=== PATIENT | male | born 1970 | race Caucasian/White ===

== ENCOUNTER → 2021-05-28 11:09 | Outpatient (BNVA) | payer OTHER, SELFPAY | PROVIDERS: Visit Provider Registered Nurse Neonatal Intensive Care | DX: S59.912A Unspecified injury of left forearm, initial encounter (principal); X58.XXXA Exposure to other specified factors, initial encounter; Z68.37 Body mass index [BMI] 37.0-37.9, adult; F17.220 Nicotine dependence, chewing tobacco, uncomplicated; Z71.89 Other specified counseling | CPT/HCPCS: 73080 ==

== ENCOUNTER 2021-06-10 13:38 | Outpatient (CLI) | payer OTHER, SELFPAY ==
--- NOTE | 2021-06-10 13:45 | XR_ITS ---
WS: [id number] ELBOW LEFT TECHNIQUE: 3 views of the left elbow CLINICAL INFORMATION: trauma to left elbow COMPARISON: None. FINDINGS: No significant joint effusion. Distal humerus is normal in appearance. Normal radial head. Normal ole cranon. No evidence of acute fracture dislocation. Soft tissue edema dorsal elbow. XR/XR elbow LT min 3V* [id number] IMPRESSION: Mild soft tissue edema overlying the dorsal elbow. No visualized fractures.
== END 2021-06-10 13:39 | disposition home or self-care (01) ==
PROVIDERS: Visit Provider Family Medicine
DX: S50.02XA Contusion of left elbow, initial encounter (principal); X58.XXXA Exposure to other specified factors, initial encounter; R60.0 Localized edema
CPT/HCPCS: 73080

== ENCOUNTER → 2021-09-28 12:17 | Outpatient (BNVA) | payer OTHER, SELFPAY | PROVIDERS: PCP Nurse Practitioner Family; Visit Provider Nurse Practitioner Family | DX: Z20.822 Contact with and (suspected) exposure to COVID-19 (principal); J06.9 Acute upper respiratory infection, unspecified; I10 Essential (primary) hypertension; Z20.828 Contact with and (suspected) exposure to other viral communicable diseases | CPT/HCPCS: 87635 ==

== ENCOUNTER 2021-12-17 06:07 | Day surgery (SDC) | payer OTHER, SELFPAY ==
[2021-12-16 14:27] VITALS: BMI 40.0
[2021-12-17] VITALS (16 sets, daily range): BP systolic 109–148; BP diastolic 70–103; PULSE 62–87; RESP 18–30; TEMP 36.6; O2SAT 91–99
[2021-12-17] MEDS: sodium chloride 0.9% 1,000 ML 30 ML IV (06:38)
--- NOTE | 2021-12-17 06:57 | ANES.PREANE2 ---
Pre-Anesthetic Assessment Height/Weight: Height 1.68 m Weight 112.491 kg Temp Pulse Resp BP Pulse Ox 97.9 F 62 18 121/78 95 12/17/21 06:17 12/17/21 06:17 12/17/21 06:17 12/17/21 06:17 12/17/21 06:17 Preop Diagnosis: cholelithiasis Operation Date: 12/17/21 07:30 Proposed Procedures p Laparoscopic Cholecystectomy/87396/K82.9 gallbladder problem(Not Applicable) - Lake White MD Familial anesthetic complications: none Was Beta Maria Del Carmen taken within 24 hours: Yes Was Clonidine taken within 24 hours: N/A Last intake: Intake Last Liquid Date 12/16/21 Last Liquid Time 18:30 Last Solid Date 12/16/21 Last Solid Time 18:30 Social No alcohol and No tobacco Exam alert, oriented x 3, clear to auscultation bilaterally and regular rate & rhythm Airway Submandibular: within normal limits Cervical ROM: within normal limits Mallampati: Class II Dentition: false Pulmonary STOP BANG Score of 8 no dx of apnea CV/HEM Hypertension None reported Hepatic None reported GI cholelithiasis Metabolic Morbid Obesity Neuropsych Depression and Neuropathy (ulnar nerve neuropathy ) Anesthetic Plan ASA status: 3 (51 year old morbidly obese male with high risk for ARTHUR on stop bang assesment, depression, htn, ) Anesthesia: Anesthesia Evaluation and General Other: We discussed risk and benefits of general anesthesia including PONV, sore throat (sometimes severe), corneal abrasion, positioning and peripheral nerve injuries, life threatening allergic reaction, post operative ICU admission requiring prolonged intubation, stroke, heart attack, , and rare incidences of recall. Patient consents to proceed with general anesthesia. Medications/Allergies Home Medications Medication Instructions Recorded Confirmed Last Taken Type buspirone 10 mg tablet 20 mg PO TID 05/28/21 12/17/21 12/16/21 History sumatriptan succinate 50 mg tablet See Rx Instructions PO .COMPLEX 05/28/21 12/17/21 12/16/21 History (Imitrex) atenolol 25 mg tablet 50 mg PO DAILY 12/11/21 12/17/21 12/17/21 History fluticasone propionate 50 1 spray INTRANASAL DAILY 12/11/21 12/17/21 12/16/21 History mcg/actuation nasal spray,suspension (Flonase Allergy Relief) sertraline 50 mg tablet (Zoloft) 150 mg PO DAILY tab 12/11/21 12/17/21 12/16/21 History topiramate 100 mg tablet 100 mg PO BID 12/11/21 12/17/21 12/16/21 History docusate sodium 100 mg capsule 100 mg PO BID #30 cap 12/17/21 Unknown Rx (Colace) hydrocodone 5 mg-acetaminophen 325 1 tab PO Q6H PRN #20 tab 12/17/21 Unknown Rx mg tablet ondansetron HCl 4 mg tablet 4 mg PO Q8H 5 Days #15 tab 12/17/21 Unknown Rx Allergies Allergy/AdvReac Type Severity Reaction Status Date / Time No Known Allergies Allergy Verified 12/16/21 14:23 Current Medications Generic Name Dose Route Start Last Admin Trade Name Freq PRN Reason Stop Dose Admin Sodium Chloride 1,000 mls @ 30 mls/hr 12/17/21 06:15 12/17/21 06:38 Sodium Chloride 0.9% IV 12/18/21 06:14 30 mls/hr .Q24H SAMUEL Administration PFSH Anesthesia Medical History Anxiety Depression History of COVID-19 Migraine Sinusitis Surgical History (Updated 12/17/21 @ 09:02 by Lake White MD) History of appendectomy History of colonoscopy 10 yrs Status post laparoscopic cholecystectomy (12/17/21) Family History Other Cancer Social History Smoking and tobacco status: former smoker Data Anesthesia Cardiac Studies: No Data to Display
--- NOTE | 2021-12-17 07:31 | P.HP_ITS ---
Same Day Surgery H&P Indication for Procedure/HPI DATE OF PROCEDURE: December 17, 2021 CHIEF COMPLAINT/INDICATIONFOR SURGICAL PROCEDURE: lap mauricio PREOP DIAGNOSIS: cholelithiasis PLANNED PROCEDURE: Operation Date: 12/17/21 07:30 Proposed Procedures p Laparoscopic Cholecystectomy/81154/K82.9 gallbladder problem(Not Applicable) - Lake White MD Medications/Allergies* Home Medications Medication Instructions Recorded Confirmed Type buspirone 10 mg tablet 20 mg PO TID 05/28/21 12/17/21 History sumatriptan succinate 50 mg tablet See Rx Instructions PO .COMPLEX 05/28/21 12/17/21 History (Imitrex) atenolol 25 mg tablet 50 mg PO DAILY 12/11/21 12/17/21 History fluticasone propionate 50 1 spray INTRANASAL DAILY 12/11/21 12/17/21 History mcg/actuation nasal spray,suspension (Flonase Allergy Relief) sertraline 50 mg tablet (Zoloft) 150 mg PO DAILY tab 12/11/21 12/17/21 History topiramate 100 mg tablet 100 mg PO BID 12/11/21 12/17/21 History Allergies/Adverse Reactions Allergy/AdvReac Type Severity Reaction Status Date / Time No Known Allergies Allergy Verified 12/16/21 14:23 Current Medications: Generic Name Dose Route Start Last Admin Trade Name Freq PRN Reason Stop Dose Admin Sodium Chloride 1,000 mls @ 30 mls/hr 12/17/21 06:15 12/17/21 06:38 Sodium Chloride 0.9% IV 12/18/21 06:14 30 mls/hr .Q24H SAMUEL Administration Pertinent History/Comorbid Conditions* Medical History (Updated 12/11/21 @ 10:15 by Lake White MD) Anxiety Depression History of COVID-19 Migraine Sinusitis Surgical History (Updated 12/11/21 @ 10:15 by Lake White MD) History of appendectomy History of colonoscopy 10 yrs Family History (Updated 12/11/21 @ 10:05 by Chula Carranza MA) Cancer Social History Smoking and tobacco status: former smoker Pertinent Exam Findings alert, oriented x 3 and regular rate & rhythm Recommendations Surgery/Procedure today Coding Level of Care Code 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
--- NOTE | 2021-12-17 09:03 | PM.OP ---
Operative Report Date of procedure: December 17, 2021 Pre-op diagnosis: Cholelithiasis Post-op diagnosis: same Procedure done: Laparoscopic cholecystectomy Specimens removed/disposition: Gallbladder Surgeon: Lake White Anesthesia: General Condition: stable Disposition: PACU Procedure: The patient was taken to the operating room and was intubated under general anesthesia. After the antibiotic had been administered, the abdomen was prepped and draped in a sterile manner. Using a #15 blade, a 1 centimeter infraumbilical curvilinear incision was made and using an open Micheal technique the peritoneal cavity was entered. A 10 millimeter port was placed and 15 millimeters of pneumoperitoneum was created. A 10 millimeter, 30 degrees scope was then introduced. Three 5 millimeter ports were placed in the epigastric, midclavicular and the anterior axillary line two fingerbreadths below the costal margin on the right side under the direct visualization. Ratcheted forceps were introduced into the lateral most port and was used to retract the fundus of the gallbladder cephalad and using forceps the infundibulum of the gallbladder was retracted laterally. Using L-hook cautery the peritoneum overlying the Calot's triangle was opened medially and laterally until the cystic duct and the cystic artery were skeletonized. There was a tear in the body of the gallbladder where the lateral retraction was applied resulting in drainage of bile which was irrigated and suctioned out. Dissection was carried along the body of the gallbladder and after ensuring critical view of safety, 4 clips applied on the cystic duct and 3 clips applied on the cystic artery and cut leaving, 3 clips on the remaining portion of the duct and 2 clips on the remaining portion of the artery. The rest of the gallbladder was dissected off the liver using L-hook cautery. There was no bleeding or bile leaking noted from the gallbladder fossa and the clips appeared to be in place. An EndoCatch bag was introduced to remove the gallbladder. All the ports were removed under direct visualization and there was no bleeding noted from the port sites. The fascia of the umbilicus was closed using [id number] 0 Vicryl sutures and the subcutaneous tissue was approximated using 3-0 Vicryl sutures. The skin at all four ports were closed using 4-0 Monocryl and Dermabond. A total of 10 millimeters of 0.5% Marcaine was infiltrated around the port sites. The patient was stable throughout the procedure.
[2021-12-17] MEDS: HYDROmorphone 1 mg/mL INJ 1 mL 0.5 MG IVP ×2 (09:13→09:29)
[2021-12-17] MEDS: ipratropium-albuterol 3 mL Neb INHALATION (09:25)
[2021-12-17] MEDS: HYDROcodone-acetaminophen 5-325 mg Tablet 1 TAB PO (10:37)
--- NOTE | 2021-12-17 13:45 | ANE.PACU2 ---
Inpatient post-anesthesia follow up: Airway intact: Yes Vital signs: Temperature 97.8 F Pulse Rate 74 Respiratory Rate 20 Blood Pressure 111/70 Pulse Oximetry 94 Oxygen Delivery Me thod Room Air Oxygen Flow Rate 2 Fraction of Inspir ed Oxygen Hydration adequate: Yes Nausea and vomiting: No Pain level: 5 Mental status: Baseline
== END 2021-12-17 10:40 | disposition home or self-care (01) ==
PROVIDERS: PCP Nurse Practitioner Family; Visit Provider Surgery
PROC: 0FT44ZZ Resection of Gallbladder, Percutaneous Endoscopic Approach (ICD-10-PCS; CPT 47562; principal; 2021-12-17 07:30)
DX: K80.10 Calculus of gallbladder with chronic cholecystitis without obstruction (principal); I10 Essential (primary) hypertension; E66.01 Morbid (severe) obesity due to excess calories; Z68.41 Body mass index [BMI] 40.0-44.9, adult; F32.9 Major depressive disorder, single episode, unspecified; G62.9 Polyneuropathy, unspecified; F41.9 Anxiety disorder, unspecified; Z86.16 Personal history of COVID-19; Z87.891 Personal history of nicotine dependence
CPT/HCPCS: 47562; 88304; J0690; J1100; J1170; J2250; J2370; J2405; J2704; J2710; J3010; J3490; J7030

== ENCOUNTER 2021-12-24 14:45 | Outpatient (CLI) | payer OTHER, SELFPAY ==
--- NOTE | 2021-12-24 15:10 | XR_ITS ---
WS: [id number] Abdomen series, Flat and upright 12/24/2021 Clinical Data: Z90.49 - Acquired absence of other specified parts of dig... Comparison: None. Findings: No free air is seen beneath the diaphragms. No abnormal intra-abdominal masses or calcifica tions are seen. There are clips in the right upper quadrant from a cholecystectomy. There is a modera te amount of fecal material throughout the colon. The bladder is partly full. XR/XR abdomen min 2V [id number] Impression: Negative flat and upright films of the abdomen.
[2021-12-24 15:13] LABS: Basophils # 0.1 10^3/uL (0.0-0.1); Basophils % 0.7 %; Eosinophils # 0.2 10^3/uL (0.0-0.8); Eosinophils % 1.4 %; Hematocrit 48.8 % (42.0-52.0); Lymphocytes # 1.5 10^3/uL (0.8-4.8); Lymphocytes % 13.7 %; Mean Corpuscular HGB Conc 32.8 g/dL (30.0-36.0); Mean Corpuscular Volume 88.4 fl (80-94); Mean Platelet Volume 9.5 fL (7.4-10.4); Monocytes # 1.3 10^3/uL (0.2-0.9); Monocytes % 11.8 %; Neutrophils # 7.54 10^3/uL (1.8-7.7); Neutrophils % 71.1 %; Nucleated Red Blood Cells % 0 %; Platelet Count 229 10^3/cmm (130-400); Red Blood Count 5.52 10^6/uL (4.1-5.3); Red Cell Distribution Width 13.2 % (12.1-15.1); White Blood Count 10.6 10^3/uL (4.0-10.0)
[2021-12-24 15:49] LABS: Alanine Aminotransferase 67 U/L (0-41); Albumin Level 4.1 g/dL (3.5-5.2); Alkaline Phosphatase 90 IU/L (40-130); Anion Gap 13.7 (5-19); Aspartate Amino Transferase 27 U/L (0-40); Blood Urea Nitrogen 15 mg/dL (6-20); Calcium 9.7 mg/dL (8.5-10.5); Carbon Dioxide 25 mmol/L (22-29); Chloride 104 mmol/L (98-107); Glomerular Filtration Rate 102.3 mL/min (90-130); Glucose 122 mg/dL (65-115); Lipase 23 U/L (13-60); Osmolality Calculated 288 mOsm/kg (285-295); Potassium 4.7 mmol/L (3.5-5.1); Sodium 138 mmol/L (136-145); Total Bilirubin 0.6 mg/dL (0.15-1.2); Total Protein 8.1 g/dL (6.6-8.7)
== END 2021-12-24 14:46 | disposition home or self-care (01) ==
LOC: LAB 14:48
PROVIDERS: PCP Nurse Practitioner Family; Visit Provider Surgery
DX: Z90.49 Acquired absence of other specified parts of digestive tract (principal)
CPT/HCPCS: 74019; 80053; 83690; 85025

== ENCOUNTER 2021-12-24 18:43 | Emergency (ER) | payer OTHER, SELFPAY ==
--- NOTE | 2021-12-24 18:50 | XR_ITS ---
WS: [id number] Portable AP upright chest, 12/24/2021 Clinical Data: chest pain Comparison: None. Findings: No nodules, masses or effusions are seen. The heart is slightly enlarged. The pulmonary vas cularity is not increased. No pneumothorax is seen. There is bilateral minimal patchy opacity at both costophrenic angles. These opacities could represent minimal basilar pneumonia. XR/XR chest 1V portable [id number] Impression: 1. Minimal bibasilar opacities which could represent minimal pneumonia and/or a telectasis. 2. Cardiomegaly.
[2021-12-24 19:02] VITALS: BP 114/73; PULSE 102; RESP 16; TEMP 37.3; O2SAT 95; BMI 40.3
--- NOTE | 2021-12-24 19:12 | W.ED.BACK ---
Documented by User: JACKSON Cisneros 12/24/21 21:48 HPI - Back Pain/Injury General: Chief Complaint: Back Pain/Injury Stated Complaint: SOB\PainBack to RT Shoulder Blade\Recent Surgery Time Seen by Provider: 12/24/21 19:12 History of Present Illness: 51-year-old male patient comes in today with complaints of shortness of breath and right back pain. Patient had surgery 1 week ago for his gallbladder removal. Patient was seen today by surgeon's office and had lab work done. Lab work was unremarkable. Patient states that the pain causes him not to be able to catch his breath. Patient appears in moderate pain. Patient denies any nausea or vomiting. Patient reports no fever. Patient reports he was recovering well until last night when he started having pain. Associated symptoms: Deny fever(s) Review of Systems General: Reports: 10 or more systems reviewed and unremarkable except in HPI and below Const: Denies: fever(s) Card: Reports: chest pain Resp: Reports: dyspnea Musc: Reports: back pain Skin/Breast: Denies: rash PFSH ED PFSH: Medical History Anxiety Depression History of COVID-19 Migraine Sinusitis Surgical History History of appendectomy History of colonoscopy 10 yrs Status post laparoscopic cholecystectomy (12/17/21) Family History Other Cancer Social History Smoking and tobacco status: former smoker Physical Exam Const: COMMON NORMALS: alert HENMT: COMMON NORMALS: normocephalic and atraumatic HEAD & SCALP: normocephalic and atraumatic MOUTH: Normal oral and palatal mucosa present THROAT: posterior oropharynx normal Neck/C-Spine: COMMON NORMALS: full ROM Resp: COMMON NORMALS: normal respiratory effort and clear to auscultation bilaterally AUSCULTATION: clear to auscultation bilaterally Cardio: COMMON NORMALS: regular rate and regular rhythm RATE: regular rate RHYTHM: regular rhythm GI: INSPECTION: Yes abdominal distension and Yes other (Healing surgical wound) Back/Pelvis: THORACIC SPINE/UPPER BACK: Yes pain with ROM and Yes paraspinal muscle tenderness Extremity: COMMON NORMALS: no pedal edema Neuro: SENSORIUM/ORIENTATION: Yes alert Skin: COMMON NORMALS: turgor normal GENERAL SKIN EXAM: turgor normal Course ED course: 2019, was notified by Josee shah for patient's abnormal CTA. And notes that he has a pulmonary embolism with pulmonary infarct in the right lung. There is no significant blood in the right ventricle suggesting right heart strain. I discussed with Dr. Huber who then talked with Dr. metzger who recommended patient be transferred to higher level of care. Vital Signs: Vital signs: Vital Signs Temperature 99.2 F 12/24/21 19:02 Pulse Rate 104 H 12/24/21 22:00 Respiratory Rate 20 H 12/24/21 22:00 Blood Pressure 121/86 12/24/21 22:00 Pulse Oximetry 95 12/24/21 22:00 MDM - Back Pain/Injury Medical Decision Making 51-year-old male patient comes in with right chest wall pain starting last night patient reports pain is gotten worse throughout the day. Patient had been seen at the surgeon's office and was ordered some hydrocodone. Patient had taken 1 tablet of hydrocodone prior to coming to the ER with minimal improvement of pain. On exam patient had pain and discomfort to the right posterior chest wall. No tenderness was elicited with palpation. Lungs are decreased in the bases. Vital signs noted some mild elevation of blood pressure. Oxygen saturation was normal. Patient appeared in moderate distress. Differential diagnosis includes PE, pneumonia, complication of gallbladder surgery. CBC and CMP were unremarkable. CTA of the chest noted PE with right heart strain. Dr. Huber was consulted who then consulted interventional cardiology who recommended patient be transferred to a higher level of care. Patient was notified heparin was started and patient was transferred. Labs : 12/24/21 19:25 12/24/21 19:25 Radiology Impressions Chest/Abdomen/Pelvis CT 12/24/21 19:21 IMPRESSION: 1. Acute pulmonary emboli with findings suggesting right heart strain. 2. Findings worrisome for developing pulmonary infarct at the right lung base. IMPRESSION: 1. No acute findings in the abdomen or pelvis. 2. Mild fatty liver 3. 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 Laboratory Results WBC 10.8 10^3/uL (4.0-10.0) H 12/24/21 19:25 RBC 5.71 10^6/uL (4.1-5.3) H 12/24/21 19: Hgb 16.6 g/dL (11.7-16.6) 12/24/21: Hct 50.2 % (42.0-52.0) 12/24/21: MCV 87.9 fl (80-94) 12/24/21: MCH 29.1 pg (28.0-34.0) 12/24/21: MCHC 33.1 g/dL (30.0-36.0) 12/24/21: RDW 13.2 % (12.1-15.1) 12/24/21: Plt Count 229 10^3/cmm (130-400) 12/24/21: MPV 9.9 fL (7.4-10.4) 12/24/21: Neut % (Auto) 76.8 % 12/24/21: Lymph % (Auto) 12.2 % 12/24/21: [place] % (Auto) 9.0 % 12/24/21: Eos % (Auto) 0.7 % 12/24/21: Baso % (Auto) 0.4 % 12/24/21: Neut # (Auto) 8.32 10^3/uL (1.8-7.7) H 12/24/21: Lymph # (Auto) 1.3 10^3/uL (0.8-4.8) 12/24/21: [place] # (Auto) 1.0 10^3/uL (0.2-0.9) H 12/24/21: Eos # (Auto) 0.1 10^3/uL (0.0-0.8) 12/24/21: Baso # (Auto) 0.0 10^3/uL (0.0-0.1) 12/24/21: Nucleated RBC % (auto) 0 % 12/24/21: Nucleated RBCs # 0.0 /100WBC 12/24/21: PT 13.90 SECONDS (12.1-14.9) 12/24/21: INR 1.03 (0.8-1.2) 12/24/21 19:25 APTT 26.8 SECONDS (23.9-36.7) 12/24/21 19:25 D-Dimer 3.61 ug/mIFEU (0-0.59) H 12/24/21 19:25 Sodium 136 mmol/L (136-145) 12/24/21 19:25 Potassium 3.8 mmol/L (3.5-5.1) 12/24/21 19:25 Chloride 104 mmol/L (98-107) 12/24/21 19:25 Carbon Dioxide 22 mmol/L (22-29) 12/24/21 19:25 Anion Gap 13.8 (5-19) 12/24/21 19:25 BUN 15 mg/dL (6-20) 12/24/21 19:25 Creatinine 0.7 mg/dL (0.7-1.2) 12/24/21 19:25 GFR Calculation 119.4 mL/min (90-130) 12/24/21 19:25 Glucose 169 mg/dL (65-115) H 12/24/21 19:25 Calculated Osmolality 287 mOsm/kg (285-295) 12/24/21 19:25 Calcium 8.7 mg/dL (8.5-10.5) 12/24/21 19:25 Total Bilirubin 0.7 mg/dL (0.15-1.2) 12/24/21 19:25 AST 22 U/L (0-40) 12/24/21 19:25 ALT 58 U/L (0-41) H 12/24/21 19:25 Alkaline Phosphatase 80 IU/L (40-130) 12/24/21 19:25 Troponin T Baseline 6 ng/L (0-15) 12/24/21 19:25 Troponin T 120 Minute 6.00 ng/L (0-15) 12/24/21 20:47 Delta Troponin T 0 ABS# (0-10) 12/24/21 20:47 NT-Pro-B Natriuret Pep 29 pg/mL (0-125) 12/24/21 19:25 Total Protein 7.1 g/dL (6.6-8.7) 12/24/21 19:25 Albumin 4.0 g/dL (3.5-5.2) 12/24/21 19:25 Globulin 3.1 g/dL (1.3-4.6) 12/24/21 19:25 EKG Data EKG 1: EKG interpretation date: 12/24/21 EKG interpretation time: 20:30 Interpretation: EKG shows a sinus tach with left axis deviation with a pattern consistent with pulmonary disease, regular rate of 116 bpm, no ST elevation or ectopy is noted. No prior exam was available for comparison. Discharge Plan Discharge Patient Disposition: Xfer Short-Term Hosp Clinical Impression: Pulmonary embolism and infarction Condition: Stable Referrals: Bernarda Keyes [Primary Care Provider] - Sign Out Sign Out Data: Patient Sign Out occurred on 12/24/21 at 21:06. Patient's care was discussed, and care was transferred from to Anderson Huber MD. Coding Level of Care Code ED Obstetrics Nurse for Chg Fwd Exam Comprehensive Documented by User: Anderson Huber MD 12/24/21 22:31 HPI - Back Pain/Injury General: Chief Complaint: Back Pain/Injury Stated Complaint: SOB\PainBack to RT Shoulder Blade\Recent Surgery Time Seen by Provider: 12/24/21 19:12 [facility] ED PFSH: Medical History Anxiety Depression History of COVID-19 Migraine Sinusitis Surgical History History of appendectomy History of colonoscopy 10 yrs Status post laparoscopic cholecystectomy (12/17/21) Family History Other Cancer Social History Smoking and tobacco status: former smoker Course Vital Signs: Vital signs: Vital Signs Temperature 99.2 F 12/24/21 19:02 Pulse Rate 104 H 12/24/21 22:00 Respiratory Rate 20 H 12/24/21 22:00 Blood Pressure 121/86 12/24/21 22:00 Pulse Oximetry 95 12/24/21 22:00 MDM - Back Pain/Injury Medical Decision Making 51-year-old male patient comes in with right chest wall pain starting last night patient reports pain is gotten worse throughout the day. Patient had been seen at the surgeon's office and was ordered some hydrocodone. Patient had taken 1 tablet of hydrocodone prior to coming to the ER with minimal improvement of pain. On exam patient had pain and discomfort to the right posterior chest wall. No tenderness was elicited with palpation. Lungs are decreased in the bases. Vital signs noted some mild elevation of blood pressure. Oxygen saturation was normal. Patient appeared in moderate distress. Differential diagnosis includes PE, pneumonia, complication of gallbladder surgery. CBC and CMP were unremarkable. CTA of the chest noted PE in the R mainstem with right heart strain. Dr. Huber was consulted who then consulted interventional cardiology Dr. Burt who recommended patient be transferred to a higher level of care. Patient was notified heparin was started and patient was transferred. Case was discussed with Dr. Clements who agreed with the transfer to [facility] for further management of submassive PE with the PE in the R main pulmonary artery Disposition: Transfer to outside hospital Labs : 12/24/21 19:25 12/24/21 19:25 Radiology Impressions Chest/Abdomen/Pelvis CT 12/24/21 19:21 IMPRESSION: 1. Acute pulmonary emboli with findings suggesting right heart strain. 2. Findings worrisome for developing pulmonary infarct at the right lung base. IMPRESSION: 1. No acute findings in the abdomen or pelvis. 2. Mild fatty liver 3. 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 Laboratory Results WBC 10.8 10^3/uL (4.0-10.0) H 12/24/21 19:25 RBC 5.71 10^6/uL (4.1-5.3) H 12/24/21 19:25 Hgb 16.6 g/dL (11.7-16.6) 12/24/21 19:25 Hct 50.2 % (42.0-52.0) 12/24/21 19:25 MCV 87.9 fl (80-94) 12/24/21 19: MCH 29.1 pg (28.0-34.0) 12/24/21 19:25 MCHC 33.1 g/dL (30.0-36.0) 12/24/21 19: RDW 13.2 % (12.1-15.1) 12/24/21: Plt Count 229 10^3/cmm (130-400) 12/24/21 19:25 MPV 9.9 fL (7.4-10.4) 12/24/21 19:25 Neut % (Auto) 76.8 % 12/24/21: Lymph % (Auto) 12.2 % 12/24/21: [place] % (Auto) 9.0 % 12/24/21: Eos % (Auto) 0.7 % 12/24/21: Baso % (Auto) 0.4 % 12/24/21: Neut # (Auto) 8.32 10^3/uL (1.8-7.7) H 12/24/21: Lymph # (Auto) 1.3 10^3/uL (0.8-4.8) 12/24/21: [place] # (Auto) 1.0 10^3/uL (0.2-0.9) H 12/24/21: Eos # (Auto) 0.1 10^3/uL (0.0-0.8) 12/24/21: Baso # (Auto) 0.0 10^3/uL (0.0-0.1) 12/24/21: Nucleated RBC % (auto) 0 % 12/24/21: Nucleated RBCs # 0.0 /100WBC 12/24/21: PT 13.90 SECONDS (12.1-14.9) 12/24/21 19: INR 1.03 (0.8-1.2) 12/24/21: APTT 26.8 SECONDS (23.9-36.7) 12/24/21 19: D-Dimer 3.61 ug/mIFEU (0-0.59) H 12/24/21 19:25 Sodium 136 mmol/L (136-145) 12/24/21 19: Potassium 3.8 mmol/L (3.5-5.1) 12/24/21: Chloride 104 mmol/L (98-107) 12/24/21 19:25 Carbon Dioxide 22 mmol/L (22-29) 12/24/21 19:25 Anion Gap 13.8 (5-19) 12/24/21 19:25 BUN 15 mg/dL (6-20) 12/24/21 19:25 Creatinine 0.7 mg/dL (0.7-1.2) 12/24/21 19:25 GFR Calculation 119.4 mL/min (90-130) 12/24/21 19:25 Glucose 169 mg/dL (65-115) H 12/24/21 19:25 Calculated Osmolality 287 mOsm/kg (285-295) 12/24/21 19:25 Calcium 8.7 mg/dL (8.5-10.5) 12/24/21 19:25 Total Bilirubin 0.7 mg/dL (0.15-1.2) 12/24/21 19:25 AST 22 U/L (0-40) 12/24/21 19:25 ALT 58 U/L (0-41) H 12/24/21 19:25 Alkaline Phosphatase 80 IU/L (40-130) 12/24/21 19:25 Troponin T Baseline 6 ng/L (0-15) 12/24/21 19:25 Troponin T 120 Minute 6.00 ng/L (0-15) 12/24/21 20:47 Delta Troponin T 0 ABS# (0-10) 12/24/21 20:47 NT-Pro-B Natriuret Pep 29 pg/mL (0-125) 12/24/21 19:25 Total Protein 7.1 g/dL (6.6-8.7) 12/24/21 19:25 Albumin 4.0 g/dL (3.5-5.2) 12/24/21 19:25 Globulin 3.1 g/dL (1.3-4.6) 12/24/21 19:25 Imaging Data Other Imaging: Radiologist's impression: [address] [place] [address] CT Scan Report Signed Patient: Jose Pierce Unit #: [id number] : 1970 Age/Sex: 51 / M ADM Date: 12/24/21 Loc: ER Room/Bed: Attending Dr: Ordering Provider/Ordering MD: Sebastián Singh NP Date of Service: 12/24/21 Procedure(s): CT angio chest w abd pel w con Accession Number(s): [id number] Report Number: [id number] PROCEDURE INFORMATION: Exam: CTA Chest With Contrast Exam date and time: 12/24/2021 7:46 PM Age: 51 years old Clinical indication: Bloating and other: Back pain; Dyspnea and wheezing; Prior surgery; Surgery date: 3-7 days post-operative; Surgery type: Cherelle; Patient HX: PT very short of breath and having back pain. Unable to lay flat or still for any period of time; Additional info: Right chest pain, S/P gallbladder surger 7 days TECHNIQUE: Imaging protocol: Computed tomographic angiography of the chest with contrast. 3D rendering (Not supervised by radiologist): MIP and/or 3D reconstructed images were created by the technologist. Radiation optimization: All CT scans at this facility use at least one of these dose optimization techniques: automated exposure control; mA and/or kV adjustment per patient size (includes targeted exams where dose is matched to clinical indication); or iterative reconstruction. Contrast material: OMNI 350; Contrast volume: 145 ml; Contrast route: INTRAVENOUS (IV);? COMPARISON: 1. CR XR abdomen min 2V 46717 12/24/2021 3:26 PM 2. ES surgery / GI images 12/17/2021 5:44 AM RADIATION DOSE METRICS: Total DLP (mGy-cm): 2485.61 FINDINGS: Pulmonary arteries: There is large filling defect in the main pulmonary artery to the right lower lobe and there are probably also filling defects in left lower lobe branches and also in some small bilateral upper lobe branches consistent with acute pulmonary emboli. These are not well seen on this examination due to timing of contrast which was optimized for evaluation of the aorta. Aorta: There is no thoracic aortic aneurysm or dissection. Lungs: There is some patchy infiltrate at the right lung base. Given the findings of large pulmonary embolus this is worrisome for developing pulmonary infarct. There is some partial atelectasis in the middle lobe and periphery of the lingula. Pleural spaces: There is a pleural lipoma at the left lung base. Heart: Unremarkable. No cardiomegaly. No pericardial effusion. Heart RV/LV ratio: 1.4 which indicates right heart strain Lymph nodes: There are small paratracheal and subcarinal lymph nodes but no adenopathy. Bones/joints: Unremarkable. No acute fracture. Soft tissues: Unremarkable. COMMENTS: THIS REPORT CONTAINS FINDINGS THAT MAY BE CRITICAL TO PATIENT CARE. The findings were verbally communicated via telephone conference with SEBASTIÁN SINGH at 8:25 PM CDT on 12/24/2021. The findings were acknowledged and understood.j PROCEDURE INFORMATION: Exam: CT Abdomen And Pelvis With Contrast Exam date and time: 12/24/2021 7:46 PM Age: 51 years old Clinical indication: Bloating and other: Back pain; Dyspnea and wheezing; Prior surgery; Surgery date: 3-7 days post-operative; Surgery type: Cherelle; Patient HX: PT very short of breath and having back pain. Unable to lay flat or still for any period of time; Additional info: Right chest pain, S/P gallbladder surger 7 days TECHNIQUE: Imaging protocol: Computed tomography of the abdomen and pelvis with contrast. Radiation optimization: All CT scans at this facility use at least one of these dose optimization techniques: automated exposure control; mA and/or kV adjustment per patient size (includes targeted exams where dose is matched to clinical indication); or iterative reconstruction. Contrast material: OMNI 350; Contrast volume: 145 ml; Contrast route: INTRAVENOUS (IV);? COMPARISON: 1. CR XR abdomen min 2V 51835 12/24/2021 3:26 PM 2. ES surgery / GI images 12/17/2021 5:44 AM RADIATION DOSE METRICS: Total DLP (mGy-cm): 2485.61 FINDINGS: Liver: There is a diffuse decrease in hepatic parenchymal density, consistent with mild fatty infiltration. There is no focal abnormality within the liver. Gallbladder and bile ducts: There has been a cholecystectomy. Pancreas: The pancreas is normal. Spleen: The spleen is normal. Adrenal glands: The adrenal glands are normal. Kidneys and ureters: The kidneys are normal. There is no evidence of hydronephrosis. There is no evidence of renal or ureteral calcifications. Stomach and bowel: There is no evidence of colitis/diverticulitis. There is no evidence of intestinal obstruction. Appendix: There has been an appendectomy. Intraperitoneal space: There is no evidence of free intraperitoneal fluid. Arteries: The aorta is normal. There is ectasia or mild aneurysmal dilatation of the right common iliac artery maximum diameter of 2.5 cm. Lymph nodes: There is no evidence of lymphadenopathy. Urinary bladder: Unremarkable as visualized. Reproductive: Unremarkable as visualized. Bones/joints: There is bilateral L5 spondylolysis. Soft tissues: There are bilateral inguinal hernias containing only fat more on the left than on the right. CT/CT angio chest w abd pel w con IMPRESSION: 1. Acute pulmonary emboli with findings suggesting right heart strain. 2. Findings worrisome for developing pulmonary infarct at the right lung base. ? IMPRESSION: 1. No acute findings in the abdomen or pelvis. 2. Mild fatty liver 3. 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 ? Dictated By: Johnathan Ware Signed By: Johnathan Ware Signed Date/Time: 12/24/212037 DD/ 45 Discharge Plan Discharge Patient Disposition: Xfer Short-Term Hosp Clinical Impression: Pulmonary embolism and infarction Condition: Stable Referrals: Bernarda Keyes [Primary Care Provider] - Sign Out Sign Out Data: Patient Sign Out occurred on 12/24/21 at 21:06. Patient's care was discussed, and care was transferred from to Anderson Huber MD. Coding Level of Care Code ED Obstetrics Nurse for g Fwd Exam Comprehensive
--- NOTE | 2021-12-24 19:21 | CTR_ITS ---
PROCEDURE INFORMATION: Exam: CTA Chest With Contrast Exam date and time: 12/24/2021 7:46 PM Age: 51 years old Clinical indication: Bloating and other: Back pain; Dyspnea and wheezing; Prior surgery; Surgery date: 3-7 days post-operative; Surgery type: Cherelle; Patient HX: PT very short of breath and having back pain. Unable to lay flat or still for any period of time; Additional info: Right chest pain, S/P gallbladder surger 7 days TECHNIQUE: Imaging protocol: Computed tomographic angiography of the chest with contrast. 3D rendering (Not supervised by radiologist): MIP and/or 3D reconstructed images were created by the technologist. Radiation optimization: All CT scans at this facility use at least one of these dose optimization techniques: automated exposure control; mA and/or kV adjustment per patient size (includes targeted exams where dose is matched to clinical indication); or iterative reconstruction. Contrast material: OMNI 350; Contrast volume: 145 ml; Contrast route: INTRAVENOUS (IV); COMPARISON: 1. CR XR abdomen min 2V [id number] 12/24/2021 3:26 PM 2. ES surgery / GI images 12/17/2021 5:44 AM RADIATION DOSE METRICS: Total DLP (mGy-cm): 2485.61 FINDINGS: Pulmonary arteries: There is large filling defect in the main pulmonary artery to the right lower lobe and there are probably also filling defects in left lower lobe branches and also in some small bilateral upper lobe branches consistent with acute pulmonary emboli. These are not well seen on this examination due to timing of contrast which was optimized for evaluation of the aorta. Aorta: There is no thoracic aortic aneurysm or dissection. Lungs: There is some patchy infiltrate at the right lung base. Given the findings of large pulmonary embolus this is worrisome for developing pulmonary infarct. There is some partial atelectasis in the middle lobe and periphery of the lingula. Pleural spaces: There is a pleural lipoma at the left lung base. Heart: Unremarkable. No cardiomegaly. No pericardial effusion. Heart RV/LV ratio: 1.4 which indicates right heart strain Lymph nodes: There are small paratracheal and subcarinal lymph nodes but no adenopathy. Bones/joints: Unremarkable. No acute fracture. Soft tissues: Unremarkable. COMMENTS: THIS REPORT CONTAINS FINDINGS THAT MAY BE CRITICAL TO PATIENT CARE. The findings were verbally communicated via telephone conference with JONATHAN SINGH 8:25 PM CDT on 12/24/2021. The findings were acknowledged and understood.j PROCEDURE INFORMATION: Exam: CT Abdomen And Pelvis With Contrast Exam date and time: 12/24/2021 7:46 PM Age: 51 years old Clinical indication: Bloating and other: Back pain; Dyspnea and wheezing; Prior surgery; Surgery date: 3-7 days post-operative; Surgery type: Cherelle; Patient HX: PT very short of breath and having back pain. Unable to lay flat or still for any period of time; Additional info: Right chest pain, S/P gallbladder surger 7 days TECHNIQUE: Imaging protocol: Computed tomography of the abdomen and pelvis with contrast. Radiation optimization: All CT scans at this facility use at least one of these dose optimization techniques: automated exposure control; mA and/or kV adjustment per patient size (includes targeted exams where dose is matched to clinical indication); or iterative reconstruction. Contrast material: OMNI 350; Contrast volume: 145 ml; Contrast route: INTRAVENOUS (IV); COMPARISON: 1. CR XR abdomen min 2V 60091 12/24/2021 3:26 PM 2. ES surgery / GI images 12/17/2021 5:44 AM RADIATION DOSE METRICS: Total DLP (mGy-cm): 2485.61 FINDINGS: Liver: There is a diffuse decrease in hepatic parenchymal density, consistent with mild fatty infiltration. There is no focal abnormality within the liver. Gallbladder and bile ducts: There has been a cholecystectomy. Pancreas: The pancreas is normal. Spleen: The spleen is normal. Adrenal glands: The adrenal glands are normal. Kidneys and ureters: The kidneys are normal. There is no evidence of hydronephrosis. There is no evidence of renal or ureteral calcifications. Stomach and bowel: There is no evidence of colitis/diverticulitis. There is no evidence of intestinal obstruction. Appendix: There has been an appendectomy. Intraperitoneal space: There is no evidence of free intraperitoneal fluid. Arteries: The aorta is normal. There is ectasia or mild aneurysmal dilatation of the right common iliac artery maximum diameter of 2.5 cm. Lymph nodes: There is no evidence of lymphadenopathy. Urinary bladder: Unremarkable as visualized. Reproductive: Unremarkable as visualized. Bones/joints: There is bilateral L5 spondylolysis. Soft tissues: There are bilateral inguinal hernias containing only fat more on the left than on the right. CT/CT angio chest w abd pel w con IMPRESSION: 1. Acute pulmonary emboli with findings suggesting right heart strain. 2. Findings worrisome for developing pulmonary infarct at the right lung base. IMPRESSION: 1. No acute findings in the abdomen or pelvis. 2. Mild fatty liver 3. 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
[2021-12-24] MEDS: sodium chloride 0.9% 500 ML 999 ML IV (19:27)
[2021-12-24 19:28] VITALS: RESP 18
[2021-12-24] MEDS: HYDROmorphone 1 mg/mL INJ 1 mL IVP ×2 (19:28→20:05)
[2021-12-24] MEDS: ondansetron 2 mg/ML SDV 2 mL 4 MG IVP (19:28)
[2021-12-24 19:40] VITALS: PULSE 99; RESP 20; O2SAT 97
[2021-12-24 19:49] LABS: Basophils % 0.4 %; Eosinophils # 0.1 10^3/uL (0.0-0.8); Eosinophils % 0.7 %; Hematocrit 50.2 % (42.0-52.0); Hemoglobin 16.6 g/dL (11.7-16.6); Lymphocytes # 1.3 10^3/uL (0.8-4.8); Lymphocytes % 12.2 %; Mean Corpuscular HGB Conc 33.1 g/dL (30.0-36.0); Mean Corpuscular Hemoglobin 29.1 pg (28.0-34.0); Mean Corpuscular Volume 87.9 fl (80-94); Mean Platelet Volume 9.9 fL (7.4-10.4); Neutrophils # 8.32 10^3/uL (1.8-7.7); Neutrophils % 76.8 %; Nucleated Red Blood Cells % 0 %; Platelet Count 229 10^3/cmm (130-400); Red Blood Count 5.71 10^6/uL (4.1-5.3); Red Cell Distribution Width 13.2 % (12.1-15.1); White Blood Count 10.8 10^3/uL (4.0-10.0)
[2021-12-24 19:54] LABS: D Dimer 3.61 ug/mIFEU (0-0.59); INR 1.03 (0.8-1.2); Partial Thromboplastin Time 26.8 SECONDS (23.9-36.7)
[2021-12-24 19:58] LABS: Troponin(5th) Baseline 6 ng/L (0-15)
[2021-12-24] MEDS: iohexol 350 mg/mL 100 mL Btl IV (20:02)
[2021-12-24 20:08] LABS: Alanine Aminotransferase 58 U/L (0-41); Alkaline Phosphatase 80 IU/L (40-130); Anion Gap 13.8 (5-19); Aspartate Amino Transferase 22 U/L (0-40); Blood Urea Nitrogen 15 mg/dL (6-20); Calcium 8.7 mg/dL (8.5-10.5); Carbon Dioxide 22 mmol/L (22-29); Chloride 104 mmol/L (98-107); Creatinine Clr Calc Pharmacy 149.3557; Globulin 3.1 g/dL (1.3-4.6); Glomerular Filtration Rate 119.4 mL/min (90-130); Glucose 169 mg/dL (65-115); NT Pro B Type Natriuretic Pept 29 pg/mL (0-125); Osmolality Calculated 287 mOsm/kg (285-295); Potassium 3.8 mmol/L (3.5-5.1); Sodium 136 mmol/L (136-145); Total Bilirubin 0.7 mg/dL (0.15-1.2); Total Protein 7.1 g/dL (6.6-8.7)
--- NOTE | 2021-12-24 20:20 | PC.NURSE ---
PLACED ON BEDSIDE CPR INSTRUCTOR
[2021-12-24 20:34] VITALS: BP 147/92; PULSE 116; RESP 24; O2SAT 93
--- NOTE | 2021-12-24 20:50 | ECG_ITS ---
[facility] Test Date: 2021-12-24 Pat Name: Jose Pierce Department: Room: Gender: Male Carrier Driver: : 1970 Requested By: Sebastián Kirby Order Number: [id number] Patricia MD: Nandini Wen M.D. Measurements Intervals Dows Rate: 116 P: 21 VA: 167 QRS: -40 QRSD: 73 T: 49 QT: 306 QTc: 427 Interpretive Statements SINUS TACHYCARDIA LEFT AXIS DEVIATION [QRS AXIS < -30] PATTERN CONSISTENT WITH PULMONARY DISEASE No previous ECG available for comparison Electronically Signed On 12-25-2021 18:21:50 CDT by Nandini Wen M.D. [id number]
[2021-12-24] MEDS: heparin drip 25,000 UNIT/500 ML PREMIX 31.75 UNIT IV (21:04)
--- NOTE | 2021-12-24 21:04 | PC.NURSE ---
HEPARIN DRIP VERIFIED AT BEDSIDE WITH MAURA ARROYO
[2021-12-24] MEDS: heparin 5,000 unit/mL INJ 1 mL IV (21:06)
[2021-12-24 21:45] LABS: Troponin 5 2HR Delta 0 ABS# (0-10)
[2021-12-24 22:00] VITALS: BP 121/86; PULSE 104; RESP 20; O2SAT 95
--- NOTE | 2021-12-24 22:22 | PC.NURSE ---
Report called to Rell at [facility] in [place] at [phone]
[2021-12-24] MEDS: HYDROmorphone 1 mg/mL INJ 1 mL 0.5 MG IVP (22:25)
[2021-12-24 22:54] VITALS: BP 126/90; PULSE 110; RESP 20; TEMP 36.4; O2SAT 93
== END 2021-12-24 22:59 | disposition short-term general hospital (02) ==
PROVIDERS: Nurse Practitioner Family; Emergency Provider Emergency Medicine; PCP Nurse Practitioner Family
DX: I26.99 Other pulmonary embolism without acute cor pulmonale (principal); R07.89 Other chest pain; Z87.891 Personal history of nicotine dependence; Z86.16 Personal history of COVID-19; I51.9 Heart disease, unspecified
CPT/HCPCS: 71045; 71275; 74177; 80053; 83880; 84484; 85025; 85378; 85610; 85730; 93005; 96374; 96375; 96376; 99285; J1170; J1644; J2405; J7040; Q9967

== ENCOUNTER → 2022-04-19 10:54 | Outpatient (BNVA) | payer OTHER, SELFPAY | PROVIDERS: PCP Family Medicine; Visit Provider Registered Nurse Neonatal Intensive Care | DX: R10.30 Lower abdominal pain, unspecified (principal); R39.9 Unspecified symptoms and signs involving the genitourinary system | CPT/HCPCS: 81000; 87086 ==

== ENCOUNTER → 2023-03-30 09:24 | Outpatient (BNVA) | payer OTHER, SELFPAY | PROVIDERS: PCP Family Medicine; Visit Provider Podiatrist Foot & Ankle Surgery | DX: M76.72 Peroneal tendinitis, left leg (principal); M21.612 Bunion of left foot | CPT/HCPCS: 73630 ==

== ENCOUNTER → 2023-09-22 15:30 | Outpatient (BNVA) | payer OTHER, SELFPAY | PROVIDERS: PCP Family Medicine; Visit Provider Nurse Practitioner Family | DX: J06.9 Acute upper respiratory infection, unspecified (principal) | CPT/HCPCS: 87400 ==

== ENCOUNTER 2023-11-10 07:02 | Outpatient (CLI) | payer OTHER, SELFPAY ==
--- NOTE | 2023-11-10 07:14 | MR_ITS ---
WS: [id number] MRI LUMBAR SPINE NONCONTRAST TECHNIQUE: Sagittal T1, T2 and STIR imaging. Axial T1 and T2 imaging. CLINICAL INFORMATION: LUMBAR RADICULOPATHY COMPARISON: None. FINDINGS: Mild lumbar curve. No acute compression. Slight anterolisthesis L5 on S1 with chronic spondylolysis. Anterolisthesis measures 5 mm. Disc bulging worse at L4-5. L1-L2: No significant disc bulging. Mild facet arthropathy. Slight retrolisthesis. L2-L3: Slight retrolisthesis. Mild facet arthropathy. Spinal canal and foramen are patent. L3-L4: No significant disc bulging. Mild facet arthropathy. Spinal canal and foramen are patent. L4-L5: Mild annular bulging. Shallow central protrusion. Slight effacement of the ventral thecal sac. Mild LEFT and no significant RIGHT foraminal narrowing. L5-S1: Grade 1 anterolisthesis with chronic spondylolysis. Moderate facet arthropathy. Slight unroofi ng of the L5-S1 disc. Mild RIGHT greater than LEFT foraminal narrowing. Spinal canal is patent. Visualized pelvic bony structures: Normal. Paravertebral soft tissues: Normal. IMPRESSION: 1. Grade 1 anterolisthesis L5 on S1 with chronic spondylolysis. 2. Mild RIGHT greater than LEFT L5-S1 foraminal narrowing. 3. Shallow central protrusion L4-5 with slight effacement of the ventral thecal sac. Slight narrowin g of the LEFT subarticular recess. Mild LEFT foraminal narrowing. 4. Moderate facet arthropathy L3-L5. 5. No other acute findings.
== END 2023-11-10 07:03 | disposition home or self-care (01) ==
LOC: RAD 07:04
PROVIDERS: PCP Registered Nurse; Visit Provider Physician Assistant
DX: M43.07 Spondylolysis, lumbosacral region (principal); M48.07 Spinal stenosis, lumbosacral region
CPT/HCPCS: 72148

== ENCOUNTER 2025-02-13 14:48 | Outpatient (CLI) | payer OTHER, SELFPAY | END 2025-02-13 14:49 | disposition home or self-care (01) | LOC: SPT 14:49 | PROVIDERS: PCP Registered Nurse; Visit Provider Podiatrist Foot & Ankle Surgery | DX: Z46.89 Encounter for fitting and adjustment of other specified devices (principal); S93.402D Sprain of unspecified ligament of left ankle, subsequent encounter; X58.XXXD Exposure to other specified factors, subsequent encounter | CPT/HCPCS: L1902 ==